=== PATIENT | female | born 1930 | race Caucasian/White ===

== ENCOUNTER 2017-11-20 10:53 | Inpatient (IN) | payer MEDICARE, OTHER ==
[2017-11-20 12:26] LABS: ADD MAN DIFF? NO
[2017-11-20 12:29] LABS: WHITE BLOOD COUNT 9.1 10^3/ul (4.8-10.8)
[2017-11-20 12:30] LABS: BASOPHIL # 0.1 10^3/ul (0.0-0.1); BASOPHILS % 0.8 % (0.0-2.0); EOSINOPHILS # 0.3 10^3/ul (0.0-0.5); EOSINOPHILS % 3.2 % (0.0-7.0); HEMATOCRIT 38.6 % (37.0-47.0); HEMOGLOBIN 11.2 g/dl (12.0-16.0); LYMPHOCYTES # 1.6 10^3/ul (0.8-2.9); LYMPHOCYTES % 17.2 % (15.0-51.0); MEAN CORPUSCULAR HEMOGLOBIN 26.1 pg (29.0-33.0); MEAN PLATELET VOLUME 9.9 fl (7.4-10.4); MONOCYTE # 0.9 10^3/ul (0.3-0.9); NEUTROPHIL # 6.3 10^3/ul (1.6-7.5); NEUTROPHILS % 68.5 % (39.0-77.0); PLATELET COUNT 489 10^3/UL (140-415); RED BLOOD COUNT 4.29 10^6/ul (4.20-5.40)
[2017-11-20 12:48] LABS: ALANINE AMINOTRANSFERASE 29 IU/L (13-69); ALBUMIN 2.7 g/dl (3.3-4.9); ALBUMIN/GLOBULIN RATIO 0.75; ALKALINE PHOSPHATASE 83 IU/L (42-121); ANION GAP 12 (8-16); ASPARTATE AMINO TRANSFERASE 27 IU/L (15-46); BILIRUBIN,INDIRECT 0.2 mg/dl (0-1.1); BILIRUBIN,TOTAL 0.2 mg/dl (0.2-1.3); BLOOD UREA NITROGEN 9 mg/dl (7-20); CALCIUM 8.2 mg/dl (8.4-10.2); CARBON DIOXIDE 37 mmol/L (21-31); CHLORIDE 99 mmol/L (97-110); CREATININE 0.75 mg/dl (0.44-1.00); GLUCOSE 88 mg/dl (70-220); SODIUM 145 mmol/L (135-144); TOTAL PROTEIN 6.3 g/dl (6.1-8.1)
[2017-11-20 12:50] LABS: POTASSIUM 2.8 mmol/L (3.5-5.1)
[2017-11-20 12:58] LABS: INR 1.03; PROTIME 13.6 Sec (11.9-14.9); PT RATIO 1.1
[2017-11-20 12:59] LABS: PARTIAL THROMBOPLASTIN TIME 36.5 Sec (25.0-35.0)
[2017-11-20 13:00] LABS: B-TYPE NATRIURETIC PEPTIDE 12900 PG/ML (0-450)
[2017-11-20] MEDS: METHYLPREDNISOLONE 125 MG INJ IV ×3 (13:05→23:45)
[2017-11-20] MEDS: POTASSIUM CHLORIDE 20 MEQ POWDER FOR ORAL SOLN PO (13:11)
[2017-11-20 13:15] LABS: TROPONIN-I 0.133 ng/ml (0.00-0.12)
[2017-11-20] MEDS: POTASSIUM CHLORIDE 50 ML IVPB (13:16)
[2017-11-20 13:23] LABS: AADO2 Arterial 603.5 mmHg (7.0-24.0); Allen Test ACCEPTAB; Arterial Base Excess 8.2 mmol/L (-3.0-3); Arterial Blood Gas Oxygen Sat 81.5 mmHG (95.0-100.0); Arterial COHb 0.3 % (0.0-3.0); Arterial HCO3 35.1 mmol/L (22.0-26.0); Arterial MetHb 0.3 % (0.0-1.5); Arterial Total Hemglobin 11.5 g/dl (12.0-18.0); Arterial pCO2 61.3 mmhg (35-45); MODE MASK - NRB; Site Right Radial
[2017-11-20] MEDS: IOHEXOL 100 ML (13:59)
[2017-11-20] MEDS: SOD CHLORIDE 0.9% 100 ML (13:59)
[2017-11-20] MEDS: IPRATROPIUM (NEB) 0.5 MG/2.5 ML AMP INH (14:06)
[2017-11-20] MEDS: ALBUTEROL 0.5% (NEB) 2.5 MG/0.5 ML AMP INH (14:06)
[2017-11-20] MEDS: MAGNESIUM SULFATE 2 GM/50 ML 50 ML IVPB (14:30)
[2017-11-20] MEDS ORDERED: ONDANSETRON 4 MG INJ IV (15:00)
[2017-11-20] MEDS ORDERED: ACETAMINOPHEN 325 MG TAB PO ×2 (15:00→15:30)
[2017-11-20 15:25] LABS: MAGNESIUM 1.7 mg/dl (1.7-2.5)
[2017-11-20] MEDS ORDERED: NACL 0.9% 3 ML SYG IV (15:30)
[2017-11-20] MEDS ORDERED: DOCUSATE SODIUM 100 MG CAP PO (15:30)
[2017-11-20] MEDS ORDERED: HYDROCODONE/APAP (5/325) TAB PO (15:30)
[2017-11-20] MEDS ORDERED: BISACODYL (EC) 5 MG TAB PO (15:30)
[2017-11-20] MEDS ORDERED: ALBUTEROL/IPRATROPIUM (NEB) 3 ML AMP HHN (15:30)
[2017-11-20] MEDS ORDERED: morphine 2 MG INJ IV (15:30)
[2017-11-20] MEDS: AZITHROMYCIN 500MG/NS (PMX) 250 ML IVPB (16:24)
[2017-11-20] MEDS: FUROSEMIDE 40 MG INJ IV (17:21)
[2017-11-20 17:25] LABS: ADD UMIC YES; UR ASCORBIC ACID NEGATIVE (NEGATIVE); UR BACTERIA FEW /HPF (NONE SEEN); UR BILIRUBIN (Dip) NEGATIVE (NEGATIVE); UR BLOOD (Dip) NEGATIVE (NEGATIVE); UR CLARITY SLIGHTLY CLOUDY (CLEAR); UR COLOR AMBER (YELLOW); UR GLUCOSE (Dip) NEGATIVE (NEGATIVE); UR KETONES (Dip) NEGATIVE (NEGATIVE); UR LEUKOCYTE ESTERASE (Dip) 1+ Leu/ul (NEGATIVE); UR MUCUS MANY /HPF (NONE SEEN); UR NITRITE (Dip) NEGATIVE (NEGATIVE); UR RBC 3 /HPF (0-5); UR SPECIFIC GRAVITY (Dip) 1.045 (1.003-1.030); UR TOTAL PROTEIN (Dip) 1+ mg/dl (NEGATIVE); UR UROBILINOGEN (Dip) 1+ mg/dL (NEGATIVE); UR WBC 38 /HPF (0-5)
[2017-11-20] MEDS: RIVAROXABAN 20 MG TABLET PO (18:00)
[2017-11-20 18:28] LABS: CREATINE KINASE < 20 IU/L (23-200)
[2017-11-20 18:33] LABS: CK-MB 1.75 ng/ml (0.0-2.4); TROPONIN-I 0.086 ng/ml (0.00-0.12)
[2017-11-20] MEDS: ALBUTEROL/IPRATROPIUM (NEB) 3 ML AMP HHN (19:39)
[2017-11-20] MEDS: BUDESONIDE (NEB) 0.5MG/2ML AMP HHN (19:46)
[2017-11-20] MEDS ORDERED: NON-FORMULARY/PATIENT OWN MED (Brinzolamide-Brimonidine (Simbrinza 1%-0.2% Oph) 1 DROP) XX (21:00)
[2017-11-20] MEDS: LATANOPROST 0.005% 2.5 ML OPH BOTH EYES (21:00)
[2017-11-20] MEDS: GABAPENTIN 300 MG CAP PO (23:45)
[2017-11-21 01:13] LABS: CREATINE KINASE < 20 IU/L (23-200)
[2017-11-21 01:20] LABS: CK-MB 1.36 ng/ml (0.0-2.4)
[2017-11-21 02:08] LABS: TROPONIN-I 0.083 ng/ml (0.00-0.12)
[2017-11-21] MEDS ORDERED: PENDING SANTYL ORDER FOR WOUND CARE XX (04:00)
[2017-11-21] MEDS ORDERED: COLLAGENASE 30 GM TUBE TOP (04:00)
[2017-11-21] MEDS: FUROSEMIDE 40 MG INJ IV ×2 (05:37→18:00)
[2017-11-21] MEDS: METHYLPREDNISOLONE 125 MG INJ IV (05:37)
[2017-11-21] MEDS: PANTOPRAZOLE 40 MG INJ IV (05:37)
[2017-11-21 06:35] LABS: ADD MAN DIFF? NO
[2017-11-21 06:39] LABS: ABNORMAL IP MESSAGE 1; BASOPHILS % 0.2 % (0.0-2.0); HEMATOCRIT 34.5 % (37.0-47.0); HEMOGLOBIN 10.5 g/dl (12.0-16.0); LYMPHOCYTES # 0.6 10^3/ul (0.8-2.9); LYMPHOCYTES % 5.1 % (15.0-51.0); MEAN CORPUSCULAR HEMOGLOBIN 26.2 pg (29.0-33.0); MEAN CORPUSCULAR HGB CONC 30.4 g/dl (32.0-37.0); MEAN PLATELET VOLUME 10.6 fl (7.4-10.4); MONOCYTE # 0.3 10^3/ul (0.3-0.9); MONOCYTES % 2.4 % (0.0-11.0); NEUTROPHIL # 10.7 10^3/ul (1.6-7.5); NEUTROPHILS % 91.9 % (39.0-77.0); PLATELET COUNT 461 10^3/UL (140-415); RED BLOOD COUNT 4.01 10^6/ul (4.20-5.40)
[2017-11-21 06:39] LABS: WHITE BLOOD COUNT 11.6 10^3/ul (4.8-10.8)
[2017-11-21 06:58] LABS: POSITIVE DIFF @See below
[2017-11-21] MEDS ORDERED: PANTOPRAZOLE (EC) 40 MG TAB PO (07:00)
[2017-11-21 07:16] LABS: ALBUMIN/GLOBULIN RATIO 0.79; ANION GAP 13 (8-16); CHOL/HDL RATIO 3.6 RATIO; LDL CHOLESTEROL,CALCULATED 79 mg/dl
[2017-11-21 07:24] LABS: ALANINE AMINOTRANSFERASE 34 IU/L (13-69); ALBUMIN 2.7 g/dl (3.3-4.9); ALKALINE PHOSPHATASE 89 IU/L (42-121); ASPARTATE AMINO TRANSFERASE 25 IU/L (15-46); BILIRUBIN,INDIRECT 0.1 mg/dl (0-1.1); BILIRUBIN,TOTAL 0.1 mg/dl (0.2-1.3); BLOOD UREA NITROGEN 13 mg/dl (7-20); CALCIUM 8.5 mg/dl (8.4-10.2); CARBON DIOXIDE 36 mmol/L (21-31); CHLORIDE 98 mmol/L (97-110); CHOLESTEROL 135 mg/dl (100-200); CREATININE 0.83 mg/dl (0.44-1.00); GLUCOSE 140 mg/dl (70-220); HDL CHOLESTEROL 37 mg/dl (33-92); MAGNESIUM 1.9 mg/dl (1.7-2.5); POTASSIUM 3.7 mmol/L (3.5-5.1); SODIUM 143 mmol/L (135-144); TOTAL PROTEIN 6.1 g/dl (6.1-8.1); TRIGLYCERIDES 94 mg/dl (0-149)
[2017-11-21] MEDS: ALBUTEROL/IPRATROPIUM (NEB) 3 ML AMP HHN ×3 (07:33→19:28)
[2017-11-21 07:40] LABS: HEMOGLOBIN A1C 5.2 % (0-5.9)
[2017-11-21] MEDS: BUDESONIDE (NEB) 0.5MG/2ML AMP HHN ×2 (07:45→19:39)
[2017-11-21] MEDS: DULOXETINE 30 MG CAP DR PO (09:37)
[2017-11-21] MEDS: MULTIVITAMINS THERAPEUTIC TAB PO (09:37)
[2017-11-21] MEDS: ASCORBIC ACID 500 MG TAB PO (09:38)
[2017-11-21] MEDS: FERROUS SULFATE 60 MG/ML 5ML CUP PO (09:38)
[2017-11-21] MEDS: GABAPENTIN 300 MG CAP PO ×2 (09:38→21:21)
[2017-11-21] MEDS: CHOLECALCIFEROL 1,000 UNIT TAB PO (09:38)
[2017-11-21] MEDS: DILTIAZEM (CD) 240 MG CAP PO (09:39)
[2017-11-21] MEDS: ALLOPURINOL 100 MG TAB PO (09:39)
[2017-11-21] MEDS: COLLAGENASE 30 GM TUBE TOP (10:31)
[2017-11-21] MEDS: CEFTRIAXONE 1 GM/50 ML (PMX) 50 ML IVPB (10:32)
[2017-11-21] MEDS: AZITHROMYCIN 500MG/NS (PMX) 250 ML IVPB (16:33)
[2017-11-21] MEDS: [UNRECOGNIZED DRUG - OTHER] XX (18:00)
[2017-11-21] MEDS: BRINZOLAMIDE XX (18:00)
[2017-11-21] MEDS: BRIMONIDINE XX (18:00)
[2017-11-21] MEDS: RIVAROXABAN 20 MG TABLET PO (18:03)
[2017-11-21] MEDS: MAGNESIUM SULFATE 2 GM/50 ML 50 ML IVPB (18:29)
[2017-11-21] MEDS ORDERED: METHYLPREDNISOLONE 40 MG INJ IV (21:00)
[2017-11-21] MEDS: LATANOPROST 0.005% 2.5 ML OPH BOTH EYES (21:21)
[2017-11-22] MEDS: BRINZOLAMIDE XX ×2 (02:00→10:00)
[2017-11-22] MEDS: BRIMONIDINE XX ×2 (02:00→10:00)
[2017-11-22] MEDS: [UNRECOGNIZED DRUG - OTHER] XX ×2 (02:00→10:00)
[2017-11-22] MEDS: PANTOPRAZOLE 40 MG INJ IV (05:22)
[2017-11-22] MEDS: FUROSEMIDE 40 MG INJ IV (05:27)
[2017-11-22 07:30] LABS: ADD MAN DIFF? NO
[2017-11-22 07:33] LABS: BASOPHILS % 0.1 % (0.0-2.0); HEMATOCRIT 32.4 % (37.0-47.0); HEMOGLOBIN 9.9 g/dl (12.0-16.0); LYMPHOCYTES # 0.8 10^3/ul (0.8-2.9); LYMPHOCYTES % 5.3 % (15.0-51.0); MEAN CORPUSCULAR HEMOGLOBIN 26.4 pg (29.0-33.0); MEAN CORPUSCULAR HGB CONC 30.6 g/dl (32.0-37.0); MEAN CORPUSCULAR VOLUME 86.4 fl (82.0-101.0); MEAN PLATELET VOLUME 10.6 fl (7.4-10.4); MONOCYTE # 0.9 10^3/ul (0.3-0.9); MONOCYTES % 6.1 % (0.0-11.0); NEUTROPHIL # 13.2 10^3/ul (1.6-7.5); PLATELET COUNT 404 10^3/UL (140-415); RED BLOOD COUNT 3.75 10^6/ul (4.20-5.40); RED CELL DISTRIBUTION WIDTH 18.2 % (11.5-14.5)
[2017-11-22] MEDS: ALBUTEROL/IPRATROPIUM (NEB) 3 ML AMP HHN ×3 (07:54→20:12)
[2017-11-22 07:57] LABS: ANION GAP 12 (8-16); BLOOD UREA NITROGEN 19 mg/dl (7-20); CALCIUM 7.7 mg/dl (8.4-10.2); CARBON DIOXIDE 36 mmol/L (21-31); CHLORIDE 98 mmol/L (97-110); CREATININE 0.87 mg/dl (0.44-1.00); GLUCOSE 104 mg/dl (70-220); MAGNESIUM 2.6 mg/dl (1.7-2.5); PHOSPHORUS 4.5 mg/dl (2.5-4.9); POTASSIUM 3.2 mmol/L (3.5-5.1); SODIUM 143 mmol/L (135-144)
[2017-11-22] MEDS: BUDESONIDE (NEB) 0.5MG/2ML AMP HHN ×2 (09:00→20:27)
[2017-11-22 09:35] LABS: DIGOXIN 0.8 ng/ml (1.0-2.0)
[2017-11-22] MEDS: ALLOPURINOL 100 MG TAB PO (09:55)
[2017-11-22] MEDS: GABAPENTIN 300 MG CAP PO ×2 (09:55→21:01)
[2017-11-22] MEDS: ASCORBIC ACID 500 MG TAB PO (09:55)
[2017-11-22] MEDS: MULTIVITAMINS THERAPEUTIC TAB PO (09:55)
[2017-11-22] MEDS: CHOLECALCIFEROL 1,000 UNIT TAB PO (09:55)
[2017-11-22] MEDS: DULOXETINE 30 MG CAP DR PO (09:55)
[2017-11-22] MEDS: FERROUS SULFATE 60 MG/ML 5ML CUP PO (09:55)
[2017-11-22] MEDS: COLLAGENASE 30 GM TUBE TOP (09:56)
[2017-11-22] MEDS: CEFTRIAXONE 1 GM/50 ML (PMX) 50 ML IVPB (09:56)
[2017-11-22] MEDS: DILTIAZEM (CD) 240 MG CAP PO (10:01)
[2017-11-22] MEDS ORDERED: POTASSIUM CHLORIDE 50 ML IVPB (11:00)
[2017-11-22] MEDS: FUROSEMIDE 40 MG TAB PO (12:36)
[2017-11-22] MEDS: POTASSIUM CHLORIDE 20 MEQ POWDER FOR ORAL SOLN PO (12:37)
[2017-11-22] MEDS: DIGOXIN 0.125 MG TAB PO (12:37)
[2017-11-22] MEDS: BRINZOLAMIDE BRIMONIDINE RIGHT EYE ×2 (12:45→21:00)
[2017-11-22] MEDS: AZITHROMYCIN 500MG/NS (PMX) 250 ML IVPB (17:23)
[2017-11-22] MEDS: RIVAROXABAN 20 MG TABLET PO (18:05)
[2017-11-22] MEDS: LATANOPROST 0.005% 2.5 ML OPH BOTH EYES (21:07)
[2017-11-23] MEDS: PANTOPRAZOLE 40 MG INJ IV (05:56)
[2017-11-23 07:59] LABS: ADD MAN DIFF? NO
[2017-11-23 08:05] LABS: WHITE BLOOD COUNT 7.2 10^3/ul (4.8-10.8)
[2017-11-23 08:05] LABS: BASOPHILS % 0.3 % (0.0-2.0); EOSINOPHILS % 0.4 % (0.0-7.0); HEMATOCRIT 31.6 % (37.0-47.0); HEMOGLOBIN 9.5 g/dl (12.0-16.0); LYMPHOCYTES # 0.9 10^3/ul (0.8-2.9); LYMPHOCYTES % 13.1 % (15.0-51.0); MEAN CORPUSCULAR HEMOGLOBIN 26.2 pg (29.0-33.0); MEAN CORPUSCULAR HGB CONC 30.1 g/dl (32.0-37.0); MEAN CORPUSCULAR VOLUME 87.3 fl (82.0-101.0); MEAN PLATELET VOLUME 10.8 fl (7.4-10.4); MONOCYTE # 0.7 10^3/ul (0.3-0.9); MONOCYTES % 9.9 % (0.0-11.0); NEUTROPHIL # 5.4 10^3/ul (1.6-7.5); NEUTROPHILS % 75.9 % (39.0-77.0); PLATELET COUNT 361 10^3/UL (140-415); RED BLOOD COUNT 3.62 10^6/ul (4.20-5.40)
[2017-11-23 08:27] LABS: ALBUMIN 2.5 g/dl (3.3-4.9); BLOOD UREA NITROGEN 13 mg/dl (7-20); CALCIUM 7.8 mg/dl (8.4-10.2); CHLORIDE 96 mmol/L (97-110); CREATININE 0.82 mg/dl (0.44-1.00); GLUCOSE 76 mg/dl (70-220); PHOSPHORUS 2.6 mg/dl (2.5-4.9); SODIUM 141 mmol/L (135-144)
[2017-11-23 08:32] LABS: POTASSIUM 2.9 mmol/L (3.5-5.1)
[2017-11-23] MEDS: ALBUTEROL/IPRATROPIUM (NEB) 3 ML AMP HHN ×3 (08:52→19:04)
[2017-11-23] MEDS: BUDESONIDE (NEB) 0.5MG/2ML AMP HHN ×2 (08:52→19:12)
[2017-11-23 09:02] LABS: ANION GAP 6 (8-16); CARBON DIOXIDE 42 mmol/L (21-31)
[2017-11-23] MEDS: DILTIAZEM (CD) 240 MG CAP PO (09:22)
[2017-11-23] MEDS: FUROSEMIDE 40 MG TAB PO (09:22)
[2017-11-23] MEDS: CHOLECALCIFEROL 1,000 UNIT TAB PO (09:23)
[2017-11-23] MEDS: ALLOPURINOL 100 MG TAB PO (09:23)
[2017-11-23] MEDS: MULTIVITAMINS THERAPEUTIC TAB PO (09:23)
[2017-11-23] MEDS: ASCORBIC ACID 500 MG TAB PO (09:23)
[2017-11-23] MEDS: DULOXETINE 30 MG CAP DR PO (09:23)
[2017-11-23] MEDS: FERROUS SULFATE 60 MG/ML 5ML CUP PO (09:23)
[2017-11-23] MEDS: GABAPENTIN 300 MG CAP PO ×2 (09:23→20:27)
[2017-11-23] MEDS: BRINZOLAMIDE BRIMONIDINE RIGHT EYE ×2 (09:27→20:28)
[2017-11-23] MEDS: COLLAGENASE 30 GM TUBE TOP (09:28)
[2017-11-23] MEDS: CEFTRIAXONE 1 GM/50 ML (PMX) 50 ML IVPB (09:28)
[2017-11-23] MEDS ORDERED: POTASSIUM CHLORIDE (SR) 20 MEQ TAB PO (09:32)
[2017-11-23] MEDS ORDERED: POTASSIUM CHLORIDE 50 ML IVPB (10:00)
[2017-11-23] MEDS: POTASSIUM CHLORIDE 20 MEQ POWDER FOR ORAL SOLN PO ×2 (10:56→14:36)
[2017-11-23] MEDS: ONDANSETRON 4 MG INJ IV (12:21)
[2017-11-23] MEDS: POTASSIUM CHLORIDE (SR) 20 MEQ TAB PO (14:41)
[2017-11-23] MEDS: RIVAROXABAN 20 MG TABLET PO (17:34)
[2017-11-23] MEDS: LACTOBACILLUS RHAMNOSUS CAP PO (20:27)
[2017-11-23] MEDS: LATANOPROST 0.005% 2.5 ML OPH BOTH EYES (20:29)
[2017-11-24] MEDS: PANTOPRAZOLE 40 MG INJ IV (05:33)
[2017-11-24] MEDS: BUDESONIDE (NEB) 0.5MG/2ML AMP HHN ×2 (08:35→19:40)
[2017-11-24] MEDS: ALBUTEROL/IPRATROPIUM (NEB) 3 ML AMP HHN ×3 (08:35→19:39)
[2017-11-24] MEDS: POTASSIUM CHLORIDE (SR) 20 MEQ TAB PO (09:33)
[2017-11-24] MEDS: FERROUS SULFATE 60 MG/ML 5ML CUP PO (09:33)
[2017-11-24] MEDS: MULTIVITAMINS THERAPEUTIC TAB PO (09:33)
[2017-11-24] MEDS: DULOXETINE 30 MG CAP DR PO (09:34)
[2017-11-24] MEDS: DILTIAZEM (CD) 240 MG CAP PO (09:36)
[2017-11-24] MEDS: CHOLECALCIFEROL 1,000 UNIT TAB PO (09:39)
[2017-11-24] MEDS: ASCORBIC ACID 500 MG TAB PO (09:39)
[2017-11-24] MEDS: FUROSEMIDE 40 MG TAB PO (09:39)
[2017-11-24] MEDS: GABAPENTIN 300 MG CAP PO ×2 (09:39→20:29)
[2017-11-24] MEDS: LACTOBACILLUS RHAMNOSUS CAP PO ×2 (09:39→20:29)
[2017-11-24] MEDS: ALLOPURINOL 100 MG TAB PO (09:39)
[2017-11-24] MEDS: BRINZOLAMIDE BRIMONIDINE RIGHT EYE ×2 (09:40→20:29)
[2017-11-24] MEDS: COLLAGENASE 30 GM TUBE TOP (09:41)
[2017-11-24 11:34] LABS: ADD MAN DIFF? NO
[2017-11-24 11:36] LABS: BASOPHILS % 0.4 % (0.0-2.0); EOSINOPHILS # 0.1 10^3/ul (0.0-0.5); EOSINOPHILS % 1.8 % (0.0-7.0); HEMATOCRIT 33.5 % (37.0-47.0); HEMOGLOBIN 9.8 g/dl (12.0-16.0); LYMPHOCYTES # 1.1 10^3/ul (0.8-2.9); LYMPHOCYTES % 16.1 % (15.0-51.0); MEAN CORPUSCULAR HEMOGLOBIN 26.3 pg (29.0-33.0); MEAN CORPUSCULAR HGB CONC 29.3 g/dl (32.0-37.0); MEAN CORPUSCULAR VOLUME 89.8 fl (82.0-101.0); MEAN PLATELET VOLUME 10.8 fl (7.4-10.4); MONOCYTE # 0.7 10^3/ul (0.3-0.9); MONOCYTES % 9.9 % (0.0-11.0); NEUTROPHIL # 4.9 10^3/ul (1.6-7.5); NEUTROPHILS % 71.5 % (39.0-77.0); PLATELET COUNT 341 10^3/UL (140-415); RED BLOOD COUNT 3.73 10^6/ul (4.20-5.40); RED CELL DISTRIBUTION WIDTH 17.8 % (11.5-14.5)
[2017-11-24 11:36] LABS: WHITE BLOOD COUNT 6.9 10^3/ul (4.8-10.8)
[2017-11-24 11:50] LABS: AADO2 Arterial 130.3 mmHg (7.0-24.0); Allen Test ACCEPTAB; Arterial Base Excess 15.5 mmol/L (-3.0-3); Arterial Blood Gas Oxygen Sat 96.3 mmHG (95.0-100.0); Arterial COHb 0.1 % (0.0-3.0); Arterial Fraction of Oxyhgb 95.9 % (93.0-99.0); Arterial HCO3 41.9 mmol/L (22.0-26.0); Arterial MetHb 0.3 % (0.0-1.5); Arterial Total Hemglobin 10.5 g/dl (12.0-18.0); Arterial pCO2 62.6 mmhg (35-45); Blood Gas IEPAP 15/5; MODE MASK - BIPAP; Site Left Radial
[2017-11-24 11:58] LABS: ALBUMIN 2.4 g/dl (3.3-4.9); BLOOD UREA NITROGEN 7 mg/dl (7-20); CALCIUM 7.8 mg/dl (8.4-10.2); CHLORIDE 94 mmol/L (97-110); CREATININE 0.77 mg/dl (0.44-1.00); GLUCOSE 94 mg/dl (70-220); MAGNESIUM 1.6 mg/dl (1.7-2.5); PHOSPHORUS 3.2 mg/dl (2.5-4.9); POTASSIUM 3.6 mmol/L (3.5-5.1); SODIUM 142 mmol/L (135-144)
[2017-11-24 12:23] LABS: ANION GAP 8 (8-16); CARBON DIOXIDE 44 mmol/L (21-31)
[2017-11-24] MEDS: DIGOXIN 0.125 MG TAB PO (13:00)
[2017-11-24] MEDS: RIVAROXABAN 20 MG TABLET PO (19:13)
[2017-11-24] MEDS: LATANOPROST 0.005% 2.5 ML OPH BOTH EYES (20:30)
[2017-11-25] MEDS: SOD CHLORIDE 0.9% 250 ML IV (04:38)
[2017-11-25] MEDS: PANTOPRAZOLE 40 MG INJ IV (05:12)
[2017-11-25 07:24] LABS: ADD MAN DIFF? NO
[2017-11-25 07:28] LABS: BASOPHILS % 0.6 % (0.0-2.0); EOSINOPHILS # 0.2 10^3/ul (0.0-0.5); EOSINOPHILS % 3.7 % (0.0-7.0); HEMATOCRIT 34.3 % (37.0-47.0); HEMOGLOBIN 10.1 g/dl (12.0-16.0); LYMPHOCYTES # 1.2 10^3/ul (0.8-2.9); LYMPHOCYTES % 18.3 % (15.0-51.0); MEAN CORPUSCULAR HGB CONC 29.4 g/dl (32.0-37.0); MEAN CORPUSCULAR VOLUME 88.2 fl (82.0-101.0); MEAN PLATELET VOLUME 11.1 fl (7.4-10.4); MONOCYTE # 0.5 10^3/ul (0.3-0.9); MONOCYTES % 8.1 % (0.0-11.0); NEUTROPHIL # 4.4 10^3/ul (1.6-7.5); PLATELET COUNT 354 10^3/UL (140-415); RED BLOOD COUNT 3.89 10^6/ul (4.20-5.40); RED CELL DISTRIBUTION WIDTH 17.6 % (11.5-14.5)
[2017-11-25 07:28] LABS: WHITE BLOOD COUNT 6.4 10^3/ul (4.8-10.8)
[2017-11-25 07:57] LABS: ALBUMIN 2.6 g/dl (3.3-4.9); ANION GAP 10 (8-16); BLOOD UREA NITROGEN 7 mg/dl (7-20); CALCIUM 8.3 mg/dl (8.4-10.2); CARBON DIOXIDE 40 mmol/L (21-31); CHLORIDE 93 mmol/L (97-110); CREATININE 0.69 mg/dl (0.44-1.00); GLUCOSE 74 mg/dl (70-220); MAGNESIUM 1.5 mg/dl (1.7-2.5); PHOSPHORUS 2.9 mg/dl (2.5-4.9); POTASSIUM 3.5 mmol/L (3.5-5.1); SODIUM 139 mmol/L (135-144)
[2017-11-25 07:58] LABS: AADO2 Arterial 253.5 mmHg (7.0-24.0); Allen Test ACCEPTAB; Arterial Base Excess 16.3 mmol/L (-3.0-3); Arterial Blood Gas Oxygen Sat 96.9 mmHG (95.0-100.0); Arterial COHb 0.3 % (0.0-3.0); Arterial Fraction of Oxyhgb 96.3 % (93.0-99.0); Arterial HCO3 44.2 mmol/L (22.0-26.0); Arterial MetHb 0.3 % (0.0-1.5); Arterial pCO2 73.9 mmhg (35-45); Blood Gas IEPAP 15/5; MODE MASK - BIPAP; Site Left Radial
[2017-11-25] MEDS: BUDESONIDE (NEB) 0.5MG/2ML AMP HHN ×2 (08:31→19:51)
[2017-11-25] MEDS: ALBUTEROL/IPRATROPIUM (NEB) 3 ML AMP HHN ×3 (08:31→19:51)
[2017-11-25] MEDS: FERROUS SULFATE 60 MG/ML 5ML CUP PO (10:21)
[2017-11-25] MEDS: LACTOBACILLUS RHAMNOSUS CAP PO ×2 (10:21→20:39)
[2017-11-25] MEDS: CHOLECALCIFEROL 1,000 UNIT TAB PO (10:21)
[2017-11-25] MEDS: DULOXETINE 30 MG CAP DR PO (10:21)
[2017-11-25] MEDS: DILTIAZEM (CD) 240 MG CAP PO (10:21)
[2017-11-25] MEDS: GABAPENTIN 300 MG CAP PO ×2 (10:22→20:40)
[2017-11-25] MEDS: POTASSIUM CHLORIDE (SR) 20 MEQ TAB PO (10:22)
[2017-11-25] MEDS: MULTIVITAMINS THERAPEUTIC TAB PO (10:22)
[2017-11-25] MEDS: ASCORBIC ACID 500 MG TAB PO (10:22)
[2017-11-25] MEDS: FUROSEMIDE 40 MG TAB PO (10:23)
[2017-11-25] MEDS: ALLOPURINOL 100 MG TAB PO (10:23)
[2017-11-25] MEDS: BRINZOLAMIDE BRIMONIDINE RIGHT EYE ×2 (10:23→20:40)
[2017-11-25] MEDS: COLLAGENASE 30 GM TUBE TOP (10:25)
[2017-11-25] MEDS: MAGNESIUM SULFATE 2 GM/50 ML 50 ML IVPB (12:27)
[2017-11-25] MEDS: RIVAROXABAN 20 MG TABLET PO (18:56)
[2017-11-25] MEDS: LATANOPROST 0.005% 2.5 ML OPH BOTH EYES (20:40)
[2017-11-26] MEDS: PANTOPRAZOLE 40 MG INJ IV (05:34)
[2017-11-26 06:51] LABS: INR 1.33; PROTIME 16.7 Sec (11.9-14.9); PT RATIO 1.3
[2017-11-26 07:32] LABS: ALBUMIN 2.7 g/dl (3.3-4.9); BLOOD UREA NITROGEN 6 mg/dl (7-20); CALCIUM 8.7 mg/dl (8.4-10.2); CHLORIDE 90 mmol/L (97-110); CREATININE 0.67 mg/dl (0.44-1.00); GLUCOSE 87 mg/dl (70-220); PHOSPHORUS 3.5 mg/dl (2.5-4.9); POTASSIUM 3.5 mmol/L (3.5-5.1); SODIUM 137 mmol/L (135-144)
[2017-11-26 07:34] LABS: ANION GAP 10 (8-16)
[2017-11-26 07:42] LABS: CARBON DIOXIDE 39 mmol/L (21-31)
[2017-11-26 08:10] LABS: AADO2 Arterial 115.2 mmHg (7.0-24.0); Allen Test ACCEPTAB; Arterial Base Excess 16.9 mmol/L (-3.0-3); Arterial Blood Gas Oxygen Sat 93.9 mmHG (95.0-100.0); Arterial COHb 0.3 % (0.0-3.0); Arterial Fraction of Oxyhgb 93.3 % (93.0-99.0); Arterial HCO3 43.3 mmol/L (22.0-26.0); Arterial MetHb 0.3 % (0.0-1.5); Arterial Total Hemglobin 10.7 g/dl (12.0-18.0); Arterial pCO2 62.6 mmhg (35-45); MODE NASAL CANNULA; Site Left Radial
[2017-11-26] MEDS: ALBUTEROL/IPRATROPIUM (NEB) 3 ML AMP HHN ×3 (08:50→20:01)
[2017-11-26] MEDS: BUDESONIDE (NEB) 0.5MG/2ML AMP HHN ×2 (08:50→20:01)
[2017-11-26] MEDS: ALLOPURINOL 100 MG TAB PO (09:10)
[2017-11-26] MEDS: MULTIVITAMINS THERAPEUTIC TAB PO (09:10)
[2017-11-26] MEDS: LACTOBACILLUS RHAMNOSUS CAP PO ×2 (09:10→21:04)
[2017-11-26] MEDS: CHOLECALCIFEROL 1,000 UNIT TAB PO (09:10)
[2017-11-26] MEDS: POTASSIUM CHLORIDE (SR) 20 MEQ TAB PO (09:11)
[2017-11-26] MEDS: ASCORBIC ACID 500 MG TAB PO (09:11)
[2017-11-26] MEDS: DULOXETINE 30 MG CAP DR PO (09:11)
[2017-11-26] MEDS: FERROUS SULFATE 60 MG/ML 5ML CUP PO (09:12)
[2017-11-26] MEDS: FUROSEMIDE 40 MG TAB PO (09:13)
[2017-11-26] MEDS: DILTIAZEM (CD) 240 MG CAP PO (09:14)
[2017-11-26] MEDS: GABAPENTIN 300 MG CAP PO ×2 (09:14→21:04)
[2017-11-26] MEDS: COLLAGENASE 30 GM TUBE TOP (09:18)
[2017-11-26] MEDS: BRINZOLAMIDE BRIMONIDINE RIGHT EYE ×2 (11:56→21:05)
[2017-11-26] MEDS: DIGOXIN 0.125 MG TAB PO (13:03)
[2017-11-26] MEDS: RIVAROXABAN 20 MG TABLET PO (17:32)
[2017-11-26] MEDS: LATANOPROST 0.005% 2.5 ML OPH BOTH EYES (21:04)
[2017-11-27] MEDS: PANTOPRAZOLE 40 MG INJ IV (05:46)
[2017-11-27 06:38] LABS: ADD MAN DIFF? NO
[2017-11-27 06:44] LABS: WHITE BLOOD COUNT 8.2 10^3/ul (4.8-10.8)
[2017-11-27 06:44] LABS: BASOPHILS % 0.5 % (0.0-2.0); EOSINOPHILS # 0.2 10^3/ul (0.0-0.5); EOSINOPHILS % 2.2 % (0.0-7.0); HEMOGLOBIN 9.8 g/dl (12.0-16.0); LYMPHOCYTES # 1.2 10^3/ul (0.8-2.9); LYMPHOCYTES % 14.1 % (15.0-51.0); MEAN CORPUSCULAR HEMOGLOBIN 26.1 pg (29.0-33.0); MEAN CORPUSCULAR HGB CONC 30.6 g/dl (32.0-37.0); MEAN CORPUSCULAR VOLUME 85.1 fl (82.0-101.0); MEAN PLATELET VOLUME 10.9 fl (7.4-10.4); MONOCYTE # 0.7 10^3/ul (0.3-0.9); MONOCYTES % 8.2 % (0.0-11.0); NEUTROPHIL # 6.1 10^3/ul (1.6-7.5); NEUTROPHILS % 74.5 % (39.0-77.0); PLATELET COUNT 384 10^3/UL (140-415); RED BLOOD COUNT 3.76 10^6/ul (4.20-5.40); RED CELL DISTRIBUTION WIDTH 17.7 % (11.5-14.5)
[2017-11-27 07:03] LABS: ALBUMIN 2.7 g/dl (3.3-4.9); BLOOD UREA NITROGEN 9 mg/dl (7-20); CALCIUM 8.7 mg/dl (8.4-10.2); CHLORIDE 90 mmol/L (97-110); CREATININE 0.74 mg/dl (0.44-1.00); GLUCOSE 88 mg/dl (70-220); MAGNESIUM 1.8 mg/dl (1.7-2.5); PHOSPHORUS 4.3 mg/dl (2.5-4.9); POTASSIUM 3.4 mmol/L (3.5-5.1); SODIUM 136 mmol/L (135-144)
[2017-11-27 07:12] LABS: ANION GAP 8 (8-16); CARBON DIOXIDE 41 mmol/L (21-31)
[2017-11-27] MEDS: COLLAGENASE 30 GM TUBE TOP (09:00)
[2017-11-27] MEDS: ALBUTEROL/IPRATROPIUM (NEB) 3 ML AMP HHN ×3 (09:05→19:08)
[2017-11-27 09:25] LABS: AADO2 Arterial 43.1 mmHg (7.0-24.0); Allen Test ACCEPTAB; Arterial Base Excess 15.2 mmol/L (-3.0-3); Arterial Blood Gas Oxygen Sat 93.8 mmHG (95.0-100.0); Arterial COHb 0.3 % (0.0-3.0); Arterial Fraction of Oxyhgb 93.2 % (93.0-99.0); Arterial HCO3 42.1 mmol/L (22.0-26.0); Arterial MetHb 0.3 % (0.0-1.5); Arterial Total Hemglobin 10.5 g/dl (12.0-18.0); Arterial pCO2 65.9 mmhg (35-45); MODE NASAL CANNULA; Site Right Radial
[2017-11-27] MEDS: ALLOPURINOL 100 MG TAB PO (09:25)
[2017-11-27] MEDS: GABAPENTIN 300 MG CAP PO ×2 (09:26→20:07)
[2017-11-27] MEDS: FUROSEMIDE 40 MG TAB PO (09:26)
[2017-11-27] MEDS: CHOLECALCIFEROL 1,000 UNIT TAB PO (09:26)
[2017-11-27] MEDS: DULOXETINE 30 MG CAP DR PO (09:26)
[2017-11-27] MEDS: DILTIAZEM (CD) 240 MG CAP PO (09:27)
[2017-11-27] MEDS: POTASSIUM CHLORIDE (SR) 20 MEQ TAB PO (09:27)
[2017-11-27] MEDS: MULTIVITAMINS THERAPEUTIC TAB PO (09:28)
[2017-11-27] MEDS: FERROUS SULFATE 60 MG/ML 5ML CUP PO (09:28)
[2017-11-27] MEDS: ASCORBIC ACID 500 MG TAB PO (09:28)
[2017-11-27] MEDS: LACTOBACILLUS RHAMNOSUS CAP PO ×2 (09:28→20:07)
[2017-11-27] MEDS: BRINZOLAMIDE BRIMONIDINE RIGHT EYE ×2 (09:31→20:08)
[2017-11-27] MEDS: BUDESONIDE (NEB) 0.5MG/2ML AMP HHN ×2 (09:40→19:08)
[2017-11-27] MEDS: RIVAROXABAN 20 MG TABLET PO (17:26)
[2017-11-27] MEDS: LORAZEPAM 0.5 MG TAB PO (20:07)
[2017-11-27] MEDS: LATANOPROST 0.005% 2.5 ML OPH BOTH EYES (20:10)
[2017-11-28] MEDS: PANTOPRAZOLE 40 MG INJ IV (05:33)
[2017-11-28 07:08] LABS: ADD MAN DIFF? NO
[2017-11-28 07:12] LABS: BASOPHILS % 0.5 % (0.0-2.0); EOSINOPHILS # 0.3 10^3/ul (0.0-0.5); HEMATOCRIT 30.9 % (37.0-47.0); HEMOGLOBIN 9.6 g/dl (12.0-16.0); LYMPHOCYTES # 1.2 10^3/ul (0.8-2.9); LYMPHOCYTES % 14.9 % (15.0-51.0); MEAN CORPUSCULAR HEMOGLOBIN 26.4 pg (29.0-33.0); MEAN CORPUSCULAR HGB CONC 31.1 g/dl (32.0-37.0); MEAN CORPUSCULAR VOLUME 85.1 fl (82.0-101.0); MEAN PLATELET VOLUME 10.4 fl (7.4-10.4); MONOCYTE # 0.8 10^3/ul (0.3-0.9); MONOCYTES % 10.3 % (0.0-11.0); NEUTROPHIL # 5.5 10^3/ul (1.6-7.5); NEUTROPHILS % 69.9 % (39.0-77.0); PLATELET COUNT 375 10^3/UL (140-415); RED BLOOD COUNT 3.63 10^6/ul (4.20-5.40); RED CELL DISTRIBUTION WIDTH 17.9 % (11.5-14.5)
[2017-11-28 07:12] LABS: WHITE BLOOD COUNT 7.8 10^3/ul (4.8-10.8)
[2017-11-28] MEDS: BUDESONIDE (NEB) 0.5MG/2ML AMP HHN (08:08)
[2017-11-28] MEDS: ALBUTEROL/IPRATROPIUM (NEB) 3 ML AMP HHN (08:08)
[2017-11-28 08:19] LABS: ALBUMIN 2.7 g/dl (3.3-4.9); ANION GAP 10 (8-16); BLOOD UREA NITROGEN 9 mg/dl (7-20); CALCIUM 9.2 mg/dl (8.4-10.2); CARBON DIOXIDE 40 mmol/L (21-31); CHLORIDE 91 mmol/L (97-110); CREATININE 0.74 mg/dl (0.44-1.00); GLUCOSE 85 mg/dl (70-220); MAGNESIUM 1.7 mg/dl (1.7-2.5); PHOSPHORUS 4.1 mg/dl (2.5-4.9); POTASSIUM 3.2 mmol/L (3.5-5.1); SODIUM 138 mmol/L (135-144)
[2017-11-28] MEDS: DULOXETINE 30 MG CAP DR PO (08:55)
[2017-11-28] MEDS: FERROUS SULFATE 60 MG/ML 5ML CUP PO (08:55)
[2017-11-28] MEDS: POTASSIUM CHLORIDE (SR) 20 MEQ TAB PO (08:55)
[2017-11-28] MEDS: LACTOBACILLUS RHAMNOSUS CAP PO (08:55)
[2017-11-28] MEDS: FUROSEMIDE 40 MG TAB PO (08:55)
[2017-11-28] MEDS: DILTIAZEM (CD) 240 MG CAP PO (08:55)
[2017-11-28] MEDS: GABAPENTIN 300 MG CAP PO (08:56)
[2017-11-28] MEDS: CHOLECALCIFEROL 1,000 UNIT TAB PO (08:56)
[2017-11-28] MEDS: BRINZOLAMIDE BRIMONIDINE RIGHT EYE (08:56)
[2017-11-28] MEDS: MULTIVITAMINS THERAPEUTIC TAB PO (08:56)
[2017-11-28] MEDS: ALLOPURINOL 100 MG TAB PO (08:56)
[2017-11-28] MEDS: ASCORBIC ACID 500 MG TAB PO (08:56)
[2017-11-28] MEDS: COLLAGENASE 30 GM TUBE TOP (09:00)
== END 2017-11-28 13:37 | disposition hospice, inpatient (51) | DRG 189 ==
LOC: TEL 11-22 17:49 → E/R 10:53 → TEL 15:01
DX: J96.21 Acute and chronic respiratory failure with hypoxia (principal); I21.A1 Myocardial infarction type 2; I50.33 Acute on chronic diastolic (congestive) heart failure; L89.153 Pressure ulcer of sacral region, stage 3; E44.0 Moderate protein-calorie malnutrition; E87.8 Other disorders of electrolyte and fluid balance, not elsewhere classified; F03.90 Unspecified dementia, unspecified severity, without behavioral disturbance, psychotic disturbance, mood disturbance, and anxiety; J44.1 Chronic obstructive pulmonary disease with (acute) exacerbation; N39.0 Urinary tract infection, site not specified; Z68.1 Body mass index [BMI] 19.9 or less, adult; J96.02 Acute respiratory failure with hypercapnia; I27.20 Pulmonary hypertension, unspecified; I35.0 Nonrheumatic aortic (valve) stenosis; I48.0 Paroxysmal atrial fibrillation; K44.9 Diaphragmatic hernia without obstruction or gangrene; Z66 Do not resuscitate; Z87.891 Personal history of nicotine dependence; Z79.02 Long term (current) use of antithrombotics/antiplatelets
CPT/HCPCS: 36415; 36600; 71045; 71275; 80048; 80053; 80061; 80069; 80162; 81001; 82550; 82553; 82803; 83036; 83735; 83880; 84100; 84484; 85025; 85610; 85730; 92526; 92610; 93005; 93306; 94640; 94660; 94664; 96374; 96375; 96376; 97110; 97162; 97167; 97530; 99291-25

== ENCOUNTER 2017-11-28 12:15 | Inpatient (IN) | payer OTHER, MEDICARE ==
[2017-11-28] MEDS ORDERED: BISACODYL 10 MG SUPP PR (14:30)
[2017-11-28] MEDS ORDERED: ACETAMINOPHEN 650 MG SUPP PR (14:30)
[2017-11-28] MEDS ORDERED: ONDANSETRON 4 MG INJ IV (14:30)
[2017-11-28] MEDS ORDERED: LORAZEPAM 2 MG INJ IV (14:30)
[2017-11-28] MEDS: ALBUTEROL/IPRATROPIUM (NEB) 3 ML AMP HHN (21:16)
[2017-11-29] MEDS: morphine 2 MG INJ IV ×3 (02:56→14:12)
[2017-11-29] MEDS ORDERED: PENDING SANTYL ORDER FOR WOUND CARE XX (07:30)
[2017-11-29] MEDS: ATROPINE 1% 5 ML OPH SL ×2 (14:12→20:51)
[2017-11-29] MEDS: morphine (DRIP) 100 MG/100 ML 100 ML IV (17:24)
[2017-11-30] MEDS: ATROPINE 1% 5 ML OPH SL (10:36)
[2017-11-30] MEDS ORDERED: ARTIFICIAL TEARS 15 ML OPH BOTH EYES (11:00)
[2017-12-01] MEDS: morphine (DRIP) 100 MG/100 ML 100 ML IV (14:24)
== END 2017-12-01 17:20 | disposition expired | DRG 306 ==
LOC: TEL 12:15 → MS1 11-29 00:05
DX: I35.0 Nonrheumatic aortic (valve) stenosis (principal); J96.21 Acute and chronic respiratory failure with hypoxia; F03.90 Unspecified dementia, unspecified severity, without behavioral disturbance, psychotic disturbance, mood disturbance, and anxiety; J96.22 Acute and chronic respiratory failure with hypercapnia; I48.2 Chronic atrial fibrillation; I50.9 Heart failure, unspecified; J44.9 Chronic obstructive pulmonary disease, unspecified; Z51.5 Encounter for palliative care; D64.9 Anemia, unspecified; Z66 Do not resuscitate; I25.10 Atherosclerotic heart disease of native coronary artery without angina pectoris; F41.9 Anxiety disorder, unspecified; K43.9 Ventral hernia without obstruction or gangrene; I46.9 Cardiac arrest, cause unspecified
CPT/HCPCS: 94640